=== PATIENT | female | born 2000 | race African-American/Black ===

== ENCOUNTER 2020-09-09 22:12 | Emergency (ER) | payer MEDICAID, OTHER ==
[~2020-09-09] VITALS: Ht 167.6 cm; Wt 63.5 kg
[2020-09-10 08:19] VITALS: BP 125/91
== END 2020-09-10 04:43 | disposition home or self-care (01) ==
LOC: ER 22:12
DX: S13.4XXA Sprain of ligaments of cervical spine, initial encounter (principal); W11.XXXA Fall on and from ladder, initial encounter; Y93.89 Activity, other specified; Y92.89 Other specified places as the place of occurrence of the external cause; Y99.8 Other external cause status
CPT/HCPCS: 70450; 72125

== ENCOUNTER 2022-01-31 15:52 | Emergency (ER) | payer MEDICAID ==
[~2022-01-31] VITALS: Ht 170.2 cm; Wt 66.3 kg
[2022-01-31 16:24] VITALS: BP 121/72
[2022-01-31 16:33] LABS: Basophils # (auto) 0.1 10 ^3/uL (0-0.2); Basophils % (auto) 0.5 % (0.0-2.0); Eosinophils # (auto) 0.1 10 ^3/uL (0-0.8); Eosinophils % (auto) 0.5 % (0.0-7.0); Hematocrit 38.7 % (36.0-46.0); Hemoglobin 12.9 g/dL (12.2-16.2); Lymphocytes # (auto) 2.1 10 ^3/uL (0.4-5.4); Mean Corpuscular Hemoglobin 28.4 pg (28.0-32.0); Mean Corpuscular Hgb Conc. 33.3 g/dL (32.0-36.0); Mean Corpuscular Volume 85.2 fL (80.0-100.0); Neutrophils # (auto) 9.7 10 ^3/uL (1.6-8.6); Nucleated Red Blood Cells % 0.1 %; Red Blood Cells 4.54 10^6/uL (4.0-5.20); Red Cell Distribution Width 14.6 % (11.8-14.3); White Blood Cell 12.9 10^3/uL (4.4-10.8)
== END 2022-01-31 17:14 | disposition home or self-care (01) ==
LOC: ER 15:52
DX: O20.0 Threatened abortion (principal); Z3A.15 15 weeks gestation of pregnancy
CPT/HCPCS: 36415; 76805; 84702; 85025

== ENCOUNTER 2023-06-21 22:37 | Emergency (ER) | payer MEDICAID ==
[~2023-06-21] VITALS: Ht 167.6 cm; Wt 65.0 kg
[2023-06-21 22:55] VITALS: BP 96/59; PULSE 65; RESP 12; TEMP 97.8; O2SAT 98
[2023-06-22] MEDS ORDERED: IBUP1TAB5 PO (01:29)
[2023-06-22] MEDS: KETOROLAC TROMETH 30 MG/ML 1ML VIAL IM ONE (01:50)
== END 2023-06-22 02:02 | disposition home or self-care (01) ==
LOC: ER 22:37
DX: M25.562 Pain in left knee (principal); E07.9 Disorder of thyroid, unspecified; X58.XXXA Exposure to other specified factors, initial encounter; Y93.68 Activity, volleyball (beach) (court); Y92.89 Other specified places as the place of occurrence of the external cause; Y99.8 Other external cause status
CPT/HCPCS: 29505; 73562; 96372; 99283; J1885

== ENCOUNTER 2024-11-23 19:43 | Emergency (ER) | payer MEDICAID ==
[~2024-11-23] VITALS: Ht 167.6 cm; Wt 69.2 kg
[~2024-11-23 19:43] MED LIST: IBUP1TAB5 PO
[2024-11-23 19:53] VITALS: BP 108/61; PULSE 79; RESP 16; TEMP 98.7; O2SAT 96
--- NOTE | 2024-11-23 20:46 | ED.PDOC ---
GI ASSESSMENT HPI Comments HPI: 24 year old female presents to the ED with a chief complaint of flu-like symptoms onset 2 days. Patient states she has been experiencing body aches, nausea, vomiting for the past 3 days. She did not check her temperature, she believed she had a fever, took Tylenol prior to ED arrival. Patient's son and are experiencing similar symptoms. Denies abdominal pain, chest pain, shortness of breath, dizziness, dysuria, hematuria. No other symptoms or modifying factors present at this time. Initial Vitals BP: 108/61 HR: 79 RR: 16 O2: 96% Temp: 98.7 F Past Medical History: thyroid cancer Past Surgical History: thyroidectomy, knee surgery Social History: Denies ETOH, smoking, and drug use. Medications: Denies Allergies: NKDA MORDECAI: FLU-LIKE, NAUSEA AND VOMITING, BODY ACHES, ALL FAMILY IS SICK WITH SIMILAR SYMPTOMS. HPI: Poor Historian. REVIEW OF SYSTEMS: CONSTITUTIONAL: Denies acute: diaphoresis, HEAD: Denies acute: headache, photophobia Eyes: Denies acute: Double vision, vision loss, eye pain, eye discharge. EARS: Denies acute: tinnitus, hearing loss, ear discharge, ear pain, THROAT: Denies acute: sore throat, swelling, difficulty swallowing , pain with sw allowing, change in voice. NECK: Denies acute: neck pain, neck swelling, stiff neck. HEART: Denies acute : chest pain, palpitations, LUNGS: Denies acute: SOB, wheezing, cough, hemoptysis ABDOMEN: Denies acute: abdominal pain, diarrhea, melena , hematemesis, hematochezia SKIN: Denies acute: rash, redness, lesions, itchiness. EXTREMITIES: Denies acute: calf pain, numbness, tingling, weakness, denies pain in extremity. Denies acute: Low back pain. Neuro: Denies acute: focal neurological deficit, motor or sensory focal neurological deficit, tremors, seizure like activity, confusion, dizziness, change in mental status, loss of bowel or bladder function, cauda equina like symptoms. : Denies acute: dysuria, hematuria, flank pain, increase in urinary frequency. PSYCH: Denies acute: hallucination, suicidal ideation, homicidal ideation. FEMALE: Denies acute: abnormal vaginal bleeding, foul odor, unusual discharge. PHYSICAL EXAM: General: ----no---acute distress, awake and alert. Head: normocephalic, atraumatic. Neck: supple, trachea is midline, no swelling. Throat: Normal phonation. Eyes:, no erythema, no purulent discharge, no proptosis, no icterus. Heart: regular rate, regular rhythm, no significant murmur appreciated. Lungs: no apparent respiratory distress, Able to speak in full sentences. No wheezing, no rhonchi, no crackles. No stridors Clear to auscultation bilaterally. Abdomen: non tender to palpation, non distended, soft, no guarding, no rebound, + bowel sounds. Neuro: Awake, Alert, oriented to name, self, situation, follows commands GCS=15. Speech is normal. Skin: no petechia, no purpura, no cyanosis, non-pale, not jaundice. Lower extremities: --no - Pitting edema no deformity, no focal swelling, no calf TTP. Makes eye contact. moves all four extremities. Face: no apparent facial droop. Ambulating in the ED independently. ED COURSE: DISCLAIMER: This medical document was created using an electronic medical record system with voice recognition software and computerized dictation system. Although this document has been carefully reviewed, there might still be some phonetic and typographical errors. Occasional wrong-word or "sound-alike" substitutions may have occurred due to the inherent limitations of voice recognition software. These areas are purely typographical due to imperfections of the software programs and do not reflect any compromise in the patient's medical care. Please read the chart carefully and recognize, using context, where these substitutions have occurred. 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 Was a procedure done?: No X-Ray, Labs, Meds, VS Vital Signs Date Time Temp Pulse Resp B/P (MAP) Pulse Ox O2 Delivery O2 Flow Rate FiO2 11/23/24 19:53 98.7 79 16 108/61 96 98.7 Lab Test 11/23/24 21:23 11/23/24 20:43 11/23/24 20:18 Range/Units Influenza Type A Antigen Negative Negative Influenza Type B Antigen Negative Negative SARS-CoV-2 Antigen (Rapid) Negative NEGATIVE Urine Color Yellow Yellow Urine Clarity Turbid H Clear Urine pH 6.0 5.0-9.0 Urine Specific Rheems 1.023 1.001-1.035 Urine Protein Negative Negative Urine Ketones Negative Negative Urine Blood Negative Negative /uL Urine Nitrite Negative Negative Urine Bilirubin Negative Negative Urine Urobilinogen Normal Negative mg/dL Urine Leukocyte Esterase 1+ Negative /uL Urine Glucose Normal Normal mg/dL Urine Test Negative Negative White Blood Count 10.6 4.4-10.8 10^3/uL Red Blood Count 4.98 4.0-5.20 10^6/uL Hemoglobin 13.3 12.2-16.2 g/dL Hematocrit 40.6 36.0-46.0 % Mean Corpuscular Volume 81.5 80.0-100.0 fL Mean Corpuscular Hemoglobin 26.8 L 28.0-32.0 pg Mean Corpuscular Hemoglobin Concent 32.8 32.0-36.0 g/dL Red Cell Distribution Width 15.0 H 11.8-14.3 % Platelet Count 215 140-450 10^3/uL Mean Platelet Volume 9.2 6.9-10.8 fL Neutrophils (%) (Auto) 79.7 37.0-80.0 % Lymphocytes (%) (Auto) 14.0 10.0-50.0 % Monocytes (%) (Auto) 5.2 0.0-12.0 % Eosinophils (%) (Auto) 0.7 0.0-7.0 % Basophils (%) (Auto) 0.4 0.0-2.0 % Neutrophils # (Auto) 8.4 1.6-8.6 10 ^3/uL Lymphocytes # (Auto) 1.5 0.4-5.4 10 ^3/uL Monocytes # (Auto) 0.5 0-1.3 10 ^3/uL Eosinophils # (Auto) 0.1 0-0.8 10 ^3/uL Basophils # (Auto) 0 0-0.2 10 ^3/uL Nucleated Red Blood Cells 0.0 % Sodium Level 139 136-145 mmol/L Potassium Level 3.8 3.5-5.1 mmol/L Chloride Level 104 98-107 mmol/L Carbon Dioxide Level 25 20-31 mmol/L Anion Gap 10 5-15 Blood Urea Nitrogen 6 L 9-23 mg/dL Creatinine 0.83 0.550-1.02 mg/dL Glomerular Filtration Rate Calc 100 >90 mL/min BUN/Creatinine Ratio 7.2 L 10.0-20.0 Serum Glucose 87 74-106 mg/dL Lactic Acid Level 1.0 0.4-2.0 mmol/L Calcium Level 8.9 8.7-10.4 mg/dL Total Bilirubin 0.6 0.2-1.0 mg/dL Aspartate Amino Transferase (AST) 17 13-40 U/L Alanine Aminotransferase (ALT) 13 7-40 U/L Alkaline Phosphatase 84 46-116 U/L Total Protein 7.6 5.7-8.2 g/dL Albumin 4.3 3.2-4.8 g/dL Lipase 37 12-53 U/L Time of 1ST Reevaluation: 21:10 Reevaluation 1ST: Unchanged Time of 2ND Reevaluation: 23:20 (Urinalysis and COVID and influenza swabs are still pending) Patient Education/Counseling: Diagnosis, Treatment Family Education/Counseling: No Family Present Comments Patient left AMA. I urinalysis machine is down and only urine dip is available. Swabs took a long time also to result. Departure 1 Departure Time of Disposition: 23:19 Impression: Primary Impression: Flu-like symptoms Additional Impressions: Fever Body aches Left against medical advice Disposition: 07 LEFT AGAINST MEDICAL ADVICE Condition: Other Additional Instructions: Left against medical advice Critical Care Note Critical Care Time?: No I personally scribed for ANTELMO CHE DO ([email or web address]) on 11/23/24 at 20:46. Electronically submitted by Nelly Jernigan ([email or web address]). ANTELMO CHE DO Nov 23, 2024 20:46
[2024-11-23 20:48] LABS: Alanine Aminotransferase 13 U/L (7-40); Albumin 4.3 g/dL (3.2-4.8); Alkaline Phosphatase 84 U/L (46-116); Anion Gap 10 (5-15); BUN/Creatinine Ratio 7.2 (10.0-20.0); Bilirubin, Total 0.6 mg/dL (0.2-1.0); Calcium 8.9 mg/dL (8.7-10.4); Carbon Dioxide 25 mmol/L (20-31); Chloride 104 mmol/L (98-107); Glucose 87 mg/dL (74-106); Lipase 37 U/L (12-53); Potassium 3.8 mmol/L (3.5-5.1); Sodium 139 mmol/L (136-145); Total Protein 7.6 g/dL (5.7-8.2)
[2024-11-23 21:03] LABS: Blood Urea Nitrogen 6 mg/dL (9-23)
[2024-11-23 21:07] LABS: Hematocrit 40.6 % (36.0-46.0); Hemoglobin 13.3 g/dL (12.2-16.2); Mean Corpuscular Hemoglobin 26.8 pg (28.0-32.0); Mean Corpuscular Volume 81.5 fL (80.0-100.0); Nucleated Red Blood Cells % 0.0 %
--- NOTE | 2024-11-23 21:54 | DVH ---
CLINICAL HISTORY: FLU LIKE TECHNIQUE: Single view of the chest was obtained. COMPARISON: None FINDINGS: The heart size and pulmonary vasculature are normal. The lungs are clear. IMPRESSION: NO ACUTE CARDIOPULMONARY PROCESS.
[2024-11-23 23:31] LABS: Urine Protein, UAD Negative (Negative)
[2024-11-23 23:36] LABS: COVID19 ANTIGEN SOFIA FIA NEGATIVE (NEGATIVE)
== END 2024-11-23 23:20 | disposition left against medical advice (07) ==
LOC: ER 19:43
DX: M79.18 Myalgia, other site (principal); R11.2 Nausea with vomiting, unspecified; R50.9 Fever, unspecified; E03.9 Hypothyroidism, unspecified; Z20.822 Contact with and (suspected) exposure to COVID-19; Z85.850 Personal history of malignant neoplasm of thyroid; Z90.89 Acquired absence of other organs; Z53.29 Procedure and treatment not carried out because of patient's decision for other reasons
CPT/HCPCS: 36415; 71045; 80053; 81003; 81025; 83605; 83690; 85025; 87040; 87426; 87804